=== PATIENT | male | born 1960 | race Caucasian/White ===

== ENCOUNTER 2016-11-12 19:27 | Emergency (ER) | payer BC, OTHER ==
[~2016-11-12] VITALS: Ht 205.7 cm; Wt 94.2 kg
[2016-11-12 20:05] VITALS: BP 137/87; TEMP 36.9; Ht 205.7 cm; Wt 94.2 kg
[2016-11-12] MEDS ORDERED: XYLOCAINE 1%/SOD BICARB 20 ML VIAL INFIL ONE (20:30)
[2016-11-12] MEDS ORDERED: BUPIVACAINE 0.5 % 5 MG/1 ML MPF 30ML VIAL INFIL ONE (20:30)
[2016-11-12] MEDS ORDERED: GELATIN SPONGE 12-7MM EXT ONE (20:30)
--- NOTE | 2016-11-12 21:49 | EMERGENCY ROOM VISIT NOTE ---
ED Visit Note First contact with patient: 20:10 Chief Complaint: LEFT Thumb Laceration History of Present Illness: This patient is a 56-year-old male who presents to the Emergency Department this evening for evaluation of their LEFT thumb laceration. 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 They report a moderate amount of bleeding initially that has persisted. Patient was initially seen at [facility] and was assessed by a physician who felt it best that he come to the emergency department for evaluation. He was provided a tetanus booster this evening. The patient rates his discomfort a 0/ 10. He denies any numbness or tingling into the distal extremity. He denies any decreased range of motion of the affected digit. He denies any associated hand pain, wrist pain, or forearm pain. Medications: Reviewed and discussed with the patient. Allergies: No known allergies. PMH: No pertinent past medical history. SHx: Patient is a 56-year-old male who lives locally. ROS: All pertinent positive and negative review of systems are appropriately documented in the History of Present Illness. Physical Exam: VITAL SIGNS - Vital signs and nursing notes were reviewed. GENERAL - 56-year-old male appearing his stated age who is in no acute distress. Communicates well with provider and answers questions appropriately. SKIN - There is a 2.5 cm long avulsion laceration noted to the tip of the LEFT Thumb. The edges flap apart with traction. The flap of tissue is pale and does not cory. Dermal tissue is necrotic. No foreign bodies appreciated. Upon further examination there are no deep structures including vessel, tendon, or bony structures appreciated. There is mild active bleeding noted. MUSCULOSKELETAL - Laceration as described above. +5/5 strength appreciated of the affected digit. Full range of motion of the affected digit. NEUROLOGIC - Spinothalamic tract was found to be intact with ability to discriminate sharp versus dull sensation. No sensory defects of the dorsal column were appreciated utilizing light touch for evaluation. VASCULAR - Capillary refill was brisk. ED Course: Patient was seen and evaluated by myself. Costs and benefits of performing avulsion repair versus no repair were discussed with the patient who verbalizes understanding. Verbal consent was obtained prior to performing the procedure. 5.0 cc of a 1-1 solution of 1% buffered lidocaine and 0.5% Marcaine was used to perform a digital block of the LEFT first digit. The wound was cleansed and prepped in the typical sterile fashion utilizing normal saline and Betadine. The wound was sterilely draped. Once proper anesthetization was established, the wound was further examined and demonstrated a flap laceration as described above. The dermal tissue is already necrotic. There is no blood supply to the flap. No deep structures were appreciated. The flap was removed and a finger tourniquet was applied for better visualization. The wound was cleansed with sterile saline and Betadine. Gelfoam was applied to the area for comfort and pressure dressing was applied. Patient tolerated procedure well. No complications were met. Patient was given my typical instructions for avulsion lacerations. Gelfoam will be removed in 48 hours. He will continue to treat the wound as discussed and discharge. The patient was educated on worrisome symptoms for return visit to the emergency department. Patient discharged home in good condition. Impression: LEFT Thumb Avulsion Laceration Discharge Instructions: You have been treated in the Emergency Department today for your LEFT Thumb Avulsion Laceration. Leave the GELFOAM and dressing in place for the next 48 hours. Keep the dressing clean and dry until time for removal. To remove the GELFOAM dressing, remove the overlying tape and then soak the wound in warm water until the piece of GELFOAM can be easily removed. Proper wound care is essential for adequate wound healing and infection prevention. You can shower and clean the wound with soap and water. Do not scour over the wound, pat dry with a towel. You can use an antibiotic ointment with a dressing/bandage over the wound for the next 3-4 days. After this time you may leave the wound dry and open to the air. Look for signs of infection of the wound including: increased pain, swelling, foul discharge, streaking, or increased temperature. If any of these are noticed you should return to the Emergency Department for further assessment and treatment. As with any laceration you may have received nerve damage to the surrounding tissues. This damage could be permanent. For pain control, you can use the following pojo-ogg-jwkrohv medicines (if >12 yo): - Regular strength (325mg/tab) Tylenol (acetaminophen) 2 tabs every 4-6 hours as needed. Do not exceed 12 tablets in a 24 hour period. Avoid taking more than 4 grams (4000 mg) of Tylenol per day. This includes any other sources of acetaminophen you may take on a regular basis. - Regular strength (200 mg/tab) Advil (ibuprofen) 1-2 tabs every 4-6 hours as needed. Do not exceed a dose of 3200 mg per day. Return to the emergency department if your symptoms worsen despite treatment course outlined above. Current/Historical Medications No Active Prescriptions or Reported Meds Allergies Coded Allergies: No Known Allergies (Unverified , 11/12/16) Vital Signs Date Time Temp Pulse Resp B/P Pulse Ox O2 Delivery O2 Flow Rate FiO2 11/12/16 22:00 65 18 97 Room Air 11/12/16 20:05 36.9 71 20 137/87 97 Room Air Departure Information Impression Primary Impression: Avulsion of skin of finger Dispostion Home / Self-Care Condition GOOD Prescriptions No Active Prescriptions or Reported Meds Referrals Juan Ramon Hart M.D. (PCP) Patient Instructions A [facility], [facility] Additional Instructions You have been treated in the Emergency Department today for your LEFT Thumb Avulsion Laceration. Leave the GELFOAM and dressing in place for the next 48 hours. Keep the dressing clean and dry until time for removal. To remove the GELFOAM dressing, remove the overlying tape and then soak the wound in warm water until the piece of GELFOAM can be easily removed. Proper wound care is essential for adequate wound healing and infection prevention. You can shower and clean the wound with soap and water. Do not scour over the wound, pat dry with a towel. You can use an antibiotic ointment with a dressing/bandage over the wound for the next 3-4 days. After this time you may leave the wound dry and open to the air. Look for signs of infection of the wound including: increased pain, swelling, foul discharge, streaking, or increased temperature. If any of these are noticed you should return to the Emergency Department for further assessment and treatment. As with any laceration you may have received nerve damage to the surrounding tissues. This damage could be permanent. For pain control, you can use the following sagx-lbc-salfnzf medicines (if >12 yo): - Regular strength (325mg/tab) Tylenol (acetaminophen) 2 tabs every 4-6 hours as needed. Do not exceed 12 tablets in a 24 hour period. Avoid taking more than 4 grams (4000 mg) of Tylenol per day. This includes any other sources of acetaminophen you may take on a regular basis. - Regular strength (200 mg/tab) Advil (ibuprofen) 1-2 tabs every 4-6 hours as needed. Do not exceed a dose of 3200 mg per day. Return to the emergency department if your symptoms worsen despite treatment course outlined above.
[2016-11-12 22:00] VITALS: PULSE 65; O2SAT 97
== END 2016-11-12 22:01 | disposition home or self-care (01) ==
LOC: C.EDB 19:28 → C.EDD 22:01
DX: S61.012A Laceration without foreign body of left thumb without damage to nail, initial encounter (principal); W26.8XXA Contact with other sharp object(s), not elsewhere classified, initial encounter

== ENCOUNTER → 2017-03-20 | Outpatient (CLI) | payer BC ==
--- NOTE | 2017-03-20 16:20 | DIAGNOSTIC IMAGING REPORT ---
CHEST 2 VIEWS ROUTINE CLINICAL HISTORY: Chest wall pain. COMPARISON STUDY: Chest radiograph November 22, 2012. FINDINGS: Lung volumes are normal. There is no pneumothorax or pleural effusion. Lungs are clear. Pulmonary vascularity is normal. Cardiomediastinal silhouette is normal. IMPRESSION: No acute cardiopulmonary findings. Electronically signed by: Frederic Hines M.D. 03/20/2017 4:19 PM Dictated Date/Time: 03/20/2017 4:16 PM
== END | disposition home or self-care (01) ==
LOC: C.RADBC 15:52
PROVIDERS: ATTEND Internal Medicine
DX: R07.89 Other chest pain (principal)

== ENCOUNTER → 2017-03-26 | Outpatient (CLI) | payer BC ==
[2017-03-26 17:08] LABS: BLOOD UREA NITROGEN 19 mg/dl (7-18); BUN/CREATININE RATIO 13.8 (10-20); CALCIUM 8.9 mg/dl (8.5-10.1); CARBON DIOXIDE 27 mmol/L (21-32); CHLORIDE 109 mmol/L (98-107); GLUCOSE 80 mg/dl (70-99); POTASSIUM 4.2 mmol/L (3.5-5.1); SODIUM 142 mmol/L (136-145)
[2017-03-26 17:12] LABS: CHOLESTEROL 180 mg/dl (0-200); CHOLESTEROL/HDL RATIO 4.1; HDL CHOLESTEROL 44 mg/dl; LDL CHOLESTEROL CALCULATED 106 mg/dl; TRIGLYCERIDES 152 mg/dl (0-150); VERY LOW DENSITY LIPOPROT CALC 30 mg/dl
== END | disposition home or self-care (01) ==
LOC: C.LAB 15:54
PROVIDERS: ATTEND Internal Medicine Geriatric Medicine
DX: Z00.00 Encounter for general adult medical examination without abnormal findings (principal); K21.9 Gastro-esophageal reflux disease without esophagitis; R10.9 Unspecified abdominal pain

== ENCOUNTER → 2017-12-17 | Outpatient (CLI) | payer OTHER ==
--- NOTE | 2017-12-17 17:48 | DIAGNOSTIC IMAGING REPORT ---
CHEST 2 VIEWS ROUTINE CLINICAL HISTORY: 57 years-old Male presenting with J20.9 Acute bronchitis, unspecified organism. TECHNIQUE: PA and lateral views of the chest were obtained. COMPARISON: 03/20/2017. FINDINGS: Cardiomediastinal silhouette normal. Bronchial wall thickening suggested. Lungs and pleural spaces otherwise clear. Degenerative changes of the thoracic spine. Upper abdomen normal. IMPRESSION: 1. Findings could suggest bronchitis. No focal infiltrate to suggest pneumonia. Electronically signed by: Sky Scherer M.D. 12/17/2017 5:47 PM Dictated Date/Time: 12/17/2017 5:46 PM
== END | disposition home or self-care (01) ==
LOC: C.RAD 17:31
PROVIDERS: ATTEND Internal Medicine Geriatric Medicine
DX: J20.9 Acute bronchitis, unspecified (principal)

== ENCOUNTER → 2018-05-31 | Outpatient (CLI) | payer OTHER ==
[2018-05-31 18:22] LABS: BLOOD UREA NITROGEN 14 mg/dl (7-18); CARBON DIOXIDE 27 mmol/L (21-32); CHOLESTEROL 178 mg/dl (0-200); CREATININE 1.19 mg/dl (0.60-1.40); GLUCOSE 78 mg/dl (70-99); LDL CHOLESTEROL CALCULATED 99 mg/dl; POTASSIUM 3.9 mmol/L (3.5-5.1); SODIUM 139 mmol/L (136-145)
== END | disposition home or self-care (01) ==
LOC: C.LABBC 14:37
PROVIDERS: ATTEND Internal Medicine Geriatric Medicine
DX: Z00.00 Encounter for general adult medical examination without abnormal findings (principal); K21.9 Gastro-esophageal reflux disease without esophagitis